=== PATIENT | female | born 1950 | race Caucasian/White ===

== ENCOUNTER 2021-08-26 08:02 | Day surgery (SDC) | payer MEDICARE ==
[~2021-08-26 08:02] MED LIST: CYCLOPENTOLATE 1% OPHTH DROPS 2 ML ONE; KETOROLAC 0.45% OPHTH DROPS ONE; PHENYLEPHRINE 2.5% OPHTH 2 ML DROPS ONE; PROPARACAINE 0.5% OPHTH DROPS 15 ML ONE
[2021-08-26] MEDS ORDERED: LACTATED RINGERS 1,000 ML IV ONE ×2 (08:26→10:40)
--- NOTE | 2021-08-26 09:44 | ANESTHESIA ---
Pre-Anesthesia VS, & Labs - Diagnosis right eye nuclear sclerotic cataract - Procedure right eye cataract extraction with IOL implant Vital Signs: Temp Pulse Resp BP Pulse Ox 36.8 C 80 16 148/91 H 98 08/26/21 08:20 08/26/21 08:20 08/26/21 08:20 08/26/21 08:20 08/26/21 08:20 Height: 5 ft 1 in Weight (kg): 92 kg Body Mass Index: 38.3 BMI Classification: Obese - NPO >8 hours - Is Patient ?: No Home Medications and Allergies Home Medications: Ambulatory Orders Aspirin Chewable [St Singh Aspirin] 1 tab PO DAILY 08/25/21 Atorvastatin Calcium 1 tab PO HS 08/25/21 Buspirone HCl 1 tab PO DAILY 08/25/21 Levothyroxine [Synthroid] 1 tab PO DAILY 08/25/21 Meloxicam [Mobic] 1 tab PO PRN PRN 08/25/21 Metoprolol Succinate [Toprol Xl] 1 tab PO DAILY 08/25/21 Aspirin Chewable [St Singh Aspirin] 1 tab PO DAILY 08/25/21 Atorvastatin Calcium 1 tab PO HS 08/25/21 Buspirone HCl 1 tab PO DAILY 08/25/21 Levothyroxine [Synthroid] 1 tab PO DAILY 08/25/21 Meloxicam [Mobic] 1 tab PO PRN PRN 08/25/21 Metoprolol Succinate [Toprol Xl] 1 tab PO DAILY 08/25/21 Allergies/Adverse Reactions: Allergies Allergy/AdvReac Type Severity Reaction Status Date / Time codeine Allergy Hives Verified 08/25/21 10:22 vancomycin AdvReac Rash Verified 08/26/21 09:43 Anes History & Medical History - Anesthetic History Anesthesia Complications: reports: No previous complications - Medical History Cardiovascular: reports: Hypertension, High cholesterol, Coronary artery disease (s/p stents 2019), Other (pacemaker/defibrilator) Pulmonary: reports: COPD Gastrointestinal: reports: None Urinary: reports: None Neuro: reports: None Musculoskeletal: reports: Other Endocrine/Autoimmune: reports: HyPOthyroidism Blood Disorders: reports: None Skin: reports: None Smoking Status: Former smoker (quit 11/2009. 1 pack per day for 35 years) Psychosocial: reports: Other (PTSD) History of Cancer?: No - Surgical History Cardiothoracic: reports: Pacemaker, AICD Orthopedic: reports: Knee replacement, Spine surgery Exam General: Alert, Oriented x3, Cooperative, No acute distress Dental: Dentures full Upper Mouth Openin Fingerbreadth Neck Mobility: Normal Mallampati classification: II Thyromental Distance: 4-6 cm Mental/Cognitive Status: Alert/Oriented X3, Normal for patient Plan Anesthesia Type: MAC Consent for Procedure(s) Verified and Reviewed: Yes Code Status: Attempt Resuscitation ASA classification: 3-Severe systemic disease Is this case an emergency?: No
[2021-08-26] MEDS ORDERED: MIDAZOLAM 2 MG/2 ML VIAL ONE (10:05)
[2021-08-26] MEDS ORDERED: fentaNYL 100 MCG/2 ML VIAL ONE (10:05)
[2021-08-26] MEDS ORDERED: BRIMONIDINE 0.2% OPHTH DROPS 5 ML OPTH ONE (10:11)
[2021-08-26] MEDS ORDERED: EPINEPHrine 1 MG/ML AMP IR ONE (10:11)
[2021-08-26] MEDS ORDERED: BSS/LIDOCAINE/EPINEPHRINE 1 ML SYRINGE IO ONE (10:12)
[2021-08-26] MEDS ORDERED: TRIAMCIN/MOXIFLOX OPHTHALMIC 0.6 ML VIAL IO ONE ×2 (10:12→12:33)
[2021-08-26] MEDS ORDERED: TIMOLOL 0.5% OPHTH DROPS OPTH ONE (10:12)
[2021-08-26] MEDS ORDERED: PROPARACAINE 0.5% OPHTH DROPS 15 ML EACHEYE ONE (10:13)
[2021-08-26] MEDS ORDERED: VANCOMYCIN OPHTHALMI 8MG/0.8ML 8 MG/0.8 ML SYRINGE IO ONE (10:13)
--- NOTE | 2021-08-26 10:49 | OPERATIVE REPORT ---
Operative Report - Other Other Information/Narrative: Date of Surgery: 08/26/21 Preop Dx: Visually significant cataract right eye. This was the first cataract surgery. Postop Dx: Same Procedure: Phacoemulsification with posterior chamber toric intraocular lens implant right eye Surgeon: Dr. Mohan Lee Anesthesia: Monitored anesthesia care Complications: None Operative Indications: This is a 71-year-old F with progressive vision loss in the right eye due to 4+ nuclear sclerotic cataract. Best corrected visual acuity was 20/60 with glare to 20/100 vision in the right eye. Indications for surgery were: - Difficulty seeing words, closed captions, or game scores on TV - Difficulty seeing street signs - Difficulty driving in low light or at night - Difficulty driving at night because of headlights from other vehicles - Difficulty with glare or bright lights in any situation The patient was consented at length concerning the risks and benefits of cataract surgery after which the patient expressed a desire to proceed with surgery. Operative Procedure: The patients cornea was marked in the pre-surgical area to indicate the axis for the toric intraocular lens. The patient was taken into OR#3 and placed under monitored anesthesia care. A surgical time-out was conducted confirming correct patient, correct procedure, and correct surgical site. The patient was given topical anesthesia and then prepped and draped in the usual sterile fashion. The eye was entered at the 6 and 3 oclock positions. Intracameral Shugarcaine was injected into the anterior chamber followed by a dispersive viscoelastic. A continuous-tear curvilinear capsulorhexis was performed. The nucleus was hydrodissected and phacoemulsified. The cortex was evacuated using automated infusion and aspiration. A cohesive viscoelastic was injected into the capsular bag and a diopter toric intraocular lens was inserted into the bag and rotated to axis 18.5. Infusion and aspiration were used to evacuate the viscoelastic materials from the eye and the IOL was verified to remain on axis. The wounds were hydrated and the eye inflated to physiologic pressure using balanced salt solution. Approximately 0.25ml of a mixture of triamcinolone and moxifloxacin was injected trans-sclerally into the vitreous in the inferotemporal quadrant using a 30 gauge cannula. An additional 0.55ml of a mixture of triamcinolone and moxifloxacin was injected subconjunctivally in the superior quadrant for infection and inflammation prophylaxis. Wound integrity was checked with Weck-Kelis sponges and the IOL axis was once again verified to be on the correct axis. The patient was taken from the operating room in good condition and given post-op instructions.
[2021-08-26 11:02] VITALS: BP 128/52
--- NOTE | 2021-08-26 11:04 | ANESTHESIA POST OP EVALUATION ---
Anesthesia Post Eval - Post Anesthesia Eval Vitals: Last Vital Signs Temp 36.3 C L 08/26/21 11:01 Pulse 71 08/26/21 11:01 Resp 16 08/26/21 11:01 BP 128/52 L 08/26/21 11:01 Pulse Ox 93 08/26/21 11:01 CV Function Including HR & BP: Stable Pain Control: Satisfactory Nausea & Vomiting: Negative Mental Status: Baseline Respiratory Status: Airway Patent Hydration Status: Satisfactory Anesthesia Complications: None
[2021-08-26] MEDS ORDERED: TIMOLOL 0.5% OPHTH DROPS ONE (12:34)
[2021-08-26] MEDS ORDERED: BRIMONIDINE 0.2% OPHTH DROPS 5 ML ONE (12:34)
[2021-08-26] MEDS ORDERED: BSS/LIDOCAINE/EPINEPHRINE 1 ML VIAL ONE ×2 (12:34→12:35)
== END 2021-08-26 08:03 | disposition home or self-care (01) ==
LOC: SDS 08:02
PROVIDERS: ATTEND Ophthalmology
DX: H25.11 Age-related nuclear cataract, right eye (principal); R73.03 Prediabetes; J44.9 Chronic obstructive pulmonary disease, unspecified; E66.9 Obesity, unspecified; I10 Essential (primary) hypertension; Z68.38 Body mass index [BMI] 38.0-38.9, adult; Z79.82 Long term (current) use of aspirin; Z79.899 Other long term (current) drug therapy; Z87.891 Personal history of nicotine dependence; Z95.0 Presence of cardiac pacemaker
CPT/HCPCS: 66984; A9270; J3490; J7120; V2632

== ENCOUNTER 2021-10-21 06:05 | Day surgery (SDC) | payer MEDICARE ==
[2021-10-21] MEDS ORDERED: LACTATED RINGERS 1,000 ML IV ONE (06:47)
[2021-10-21] MEDS ORDERED: BRIMONIDINE 0.2% OPHTH DROPS 5 ML ONE (07:13)
[2021-10-21] MEDS ORDERED: TIMOLOL 0.5% OPHTH DROPS ONE (07:13)
[2021-10-21] MEDS ORDERED: TRIAMCIN/MOXIFLOX OPHTHALMIC 0.6 ML VIAL IO ONE ×4 (07:13→11:25)
[2021-10-21] MEDS ORDERED: BSS/LIDOCAINE/EPINEPHRINE 1 ML VIAL ONE (07:13)
[2021-10-21] MEDS ORDERED: EPINEPHrine 1 MG/ML AMP ONE (07:13)
--- NOTE | 2021-10-21 07:53 | ANESTHESIA ---
Pre-Anesthesia VS, & Labs - Diagnosis left eye nuclear sclerotic cataract - Procedure left eye cataract extraction with IOL implant Vital Signs: Temp Pulse Resp BP Pulse Ox 37.0 C 70 16 137/68 H 95 10/21/21 06:39 10/21/21 06:39 10/21/21 06:39 10/21/21 06:39 10/21/21 06:39 Height: 5 ft 1 in Weight (kg): 92.9 kg Body Mass Index: 38.7 BMI Classification: Obese - NPO >8 hours - Is Patient ?: No Home Medications and Allergies Aspirin Chewable [St Singh Aspirin] 1 tab PO DAILY 08/25/21 Atorvastatin Calcium 1 tab PO HS 08/25/21 Buspirone HCl 1 tab PO DAILY 08/25/21 Levothyroxine [Synthroid] 1 tab PO DAILY 08/25/21 Meloxicam [Mobic] 1 tab PO PRN PRN 08/25/21 Metoprolol Succinate [Toprol Xl] 1 tab PO DAILY 08/25/21 Allergies/Adverse Reactions: Allergies Allergy/AdvReac Type Severity Reaction Status Date / Time codeine Allergy Hives Verified 08/25/21 10:22 vancomycin AdvReac Rash Verified 08/26/21 09:43 Anes History & Medical History - Anesthetic History Anesthesia Complications: reports: No previous complications - Medical History Cardiovascular: reports: Hypertension, High cholesterol, Coronary artery disease, Other (AICD) Pulmonary: reports: COPD Gastrointestinal: reports: None Urinary: reports: None Neuro: reports: None Musculoskeletal: reports: Other Endocrine/Autoimmune: reports: HyPOthyroidism Blood Disorders: reports: None Skin: reports: None Smoking Status: Former smoker (quit 11/2009. 1 pack per day for 35 years) Psychosocial: reports: No issues indicated History of Cancer?: No - Surgical History Eyes Ears Nose Throat (EENT): reports: Cataracts Cardiothoracic: reports: Coronary stent, Pacemaker, AICD Orthopedic: reports: Knee replacement, Spine surgery Exam General: Alert, Oriented x3, Cooperative, No acute distress Dental: Dentures full Upper Mouth Openin Fingerbreadth Neck Mobility: Normal Mallampati classification: II Thyromental Distance: less than 4 cm Mental/Cognitive Status: Alert/Oriented X3, Normal for patient Plan Anesthesia Type: MAC Consent for Procedure(s) Verified and Reviewed: Yes Code Status: Attempt Resuscitation ASA classification: 3-Severe systemic disease Is this case an emergency?: No
[2021-10-21] MEDS ORDERED: MIDAZOLAM 2 MG/2 ML VIAL ONE (08:09)
[2021-10-21] MEDS ORDERED: PROPARACAINE 0.5% OPHTH DROPS 15 ML EACHEYE ONE (08:17)
[2021-10-21] MEDS ORDERED: BSS/LIDOCAINE/EPINEPHRINE 1 ML SYRINGE IO ONE (08:25)
[2021-10-21] MEDS ORDERED: EPINEPHrine 1 MG/ML AMP IR ONE (08:25)
[2021-10-21] MEDS ORDERED: BRIMONIDINE 0.2% OPHTH DROPS 5 ML OPTH ONE (08:40)
[2021-10-21] MEDS ORDERED: TIMOLOL 0.5% OPHTH DROPS OPTH ONE (08:40)
[2021-10-21] MEDS ORDERED: LACTATED RINGERS 900 ML IV ONE (08:43)
--- NOTE | 2021-10-21 08:52 | OPERATIVE REPORT ---
Operative Report - Other Other Information/Narrative: Date of Surgery: 10/21/21 Preop Dx: Visually significant cataract left eye. Cataract surgery was performed in the right eye on . Postop Dx: Same Procedure: Phacoemulsification with posterior chamber intraocular lens implant left eye Surgeon: Dr. Mohan Lee Anesthesia: Monitored anesthesia care Complications: None Operative Indications: This is a 71-year-old F with progressive vision loss in the left eye due to 3-4+ nuclear sclerotic vacuolar cataract. Best corrected visual acuity was 20/30 with glare to 20/100 vision in the left eye. Indications for surgery were: - Overall decrease in vision - Difficulty seeing words on a computer screen - Difficulty seeing words, closed captions, or game scores on TV - Difficulty seeing street signs - Difficulty driving in low light or at night - Difficulty driving at night because of headlights from other vehicles The patient was consented at length concerning the risks and benefits of cataract surgery after which the patient expressed a desire to proceed with surgery. Operative Procedure: The patient was taken into OR#3 and placed under monitored anesthesia care. A surgical time-out was conducted confirming correct patient, correct procedure, and correct surgical site. The patient was given topical anesthesia and then prepped and draped in the usual sterile fashion. The eye was entered at the 6 and 3 oclock positions. Intracameral Shugarcaine was injected into the anterior chamber followed by a dispersive viscoelastic. A continuous-tear curvilinear capsulorhexis was performed. The nucleus was hydrodissected and phacoemulsified. The cortex was evacuated using automated infusion and aspiration. A cohesive viscoelastic was injected into the capsular bag and a 17.5 diopter intraocular lens was inserted into the bag. Infusion and aspiration were used to evacuate the viscoelastic materials from the eye. The wounds were hydrated and the eye inflated to physiologic pressure using balanced salt solution. Approximately 0.25ml of a mixture of triamcinolone and moxifloxacin was injected trans-sclerally into the vitreous in the infero temporal quadrant using a 30 gauge cannula. An additional 0.55ml of a mixture of triamcinolone and moxifloxacin was injected subconjunctivally in the superior quadrant for infection and inflammation prophylaxis. Wound integrity was checked with Weck-Kelsi sponges. The patient was taken from the operating room in good condition and given post-op instructions.
[2021-10-21 09:01] VITALS: BP 109/60
--- NOTE | 2021-10-21 11:10 | ANESTHESIA POST OP EVALUATION ---
Anesthesia Post Eval - Post Anesthesia Eval Vitals: Last Vital Signs Temp 36.5 C 10/21/21 09:00 Pulse 70 10/21/21 09:00 Resp 16 10/21/21 09:00 BP 109/60 10/21/21 09:00 Pulse Ox 98 10/21/21 09:00 CV Function Including HR & BP: Stable Pain Control: Satisfactory Nausea & Vomiting: Negative Mental Status: Baseline Respiratory Status: Airway Patent Hydration Status: Satisfactory Anesthesia Complications: None
== END 2021-10-21 06:06 | disposition home or self-care (01) ==
LOC: SDS 06:05
PROVIDERS: ATTEND Ophthalmology
DX: H25.12 Age-related nuclear cataract, left eye (principal); Z98.41 Cataract extraction status, right eye; Z87.891 Personal history of nicotine dependence; J44.9 Chronic obstructive pulmonary disease, unspecified; E66.9 Obesity, unspecified; Z68.38 Body mass index [BMI] 38.0-38.9, adult; Z95.810 Presence of automatic (implantable) cardiac defibrillator
CPT/HCPCS: 66984; A9270; J3490; J7120

== ENCOUNTER 2023-11-02 08:00 | Outpatient (CLI) | payer MEDICARE | END 2023-11-02 23:59 | disposition home or self-care (01) | LOC: LAB.N 08:00 | PROVIDERS: ATTEND Physician Assistant Medical | DX: N39.0 Urinary tract infection, site not specified (principal) | CPT/HCPCS: 87086; 87181 ==